=== PATIENT | female | born 1940 | race Caucasian/White ===

== ENCOUNTER 2017-07-31 20:40 | Emergency (ER) | payer BC, MEDICARE ==
[2017-07-31 20:41] VITALS: BMI 25.9
[2017-07-31 21:00] VITALS: BP 147/79; PULSE 83; RESP 16; TEMP 97.4; O2SAT 97
--- NOTE | 2017-07-31 21:56 | C.PDOC ---
"History Of Present Illness 76 years old female presents to ED after she slipped and fell on both her knees and right shoulder on the floor of her building hallway. Patient complaints of bilateral knee pain and right shoulder pain. Denies nausea, vomiting, fever or chills. Time Seen by Provider: 07/31/17 21:01 Chief Complaint (Nursing): Lower Extremity Problem/Injury History Per: Patient History/Exam Limitations: no limitations Onset/Duration Of Symptoms: Hrs Current Symptoms Are (Timing): Still Present Severity: Moderate Pain Scale Rating Of: 4 Recent travel outside of the [place]: No - Knee Description Of Injury: Fell Past Medical History Reviewed: Historical Data, Nursing Documentation, Vital Signs Vital Signs: Last Vital Signs Temp 97.4 F L 07/31/17 20:57 Pulse 83 07/31/17 20:57 Resp 16 07/31/17 20:57 BP 147/79 07/31/17 20:57 Pulse Ox 97 08/01/17 03:13 - Medical History PMH: Arthritis, Diverticulitis, HTN, Hypercholesterolemia - [facility] Procedures HOME MANAGEMENT TREATMENT (10/10/15) HOME MANAGEMENT TREATMENT USING ASSIST EQUIPMENT (06/03/16) INJECT STEROID (11/28/14) INJECTION INTO JOINT (11/28/14) SPINAL CANAL INJECT NEC (11/28/14) THERAPEUTIC EXERCISE TREATMENT OF MUSCULOSK LOW BACK/LE (06/03/16) THERAPEUTIC EXERCISE TREATMENT OF MUSCULOSK WHOLE (10/10/15) Family History: States: No Known Family Hx - Social History Hx Tobacco Use: No Hx Alcohol Use: No Hx Substance Use: No - Immunization History Hx Tetanus Toxoid Vaccination: No Hx Influenza Vaccination: No Hx Pneumococcal Vaccination: No Review Of Systems Constitutional: Negative for: Fever, Chills Musculoskeletal: Positive for: Shoulder Pain (Right ), Other (Bilateral knee pain) Neurological: Negative for: Weakness, Numbness Psych: Negative for: Depression, Suicidal ideation Physical Exam - Physical Exam Appears: Non-toxic, Other (Awake and alert) Skin: Warm, Dry Head: Atraumatic, Normacephalic Eye(s): bilateral: Normal Inspection Neck: No Midline Cervical Tenderness, Paracervical Tenderness Chest: Symmetrical, No Tenderness Cardiovascular: Rhythm Regular Respiratory: No Rales, No Rhonchi, No Wheezing Gastrointestinal/Abdominal: Soft, No Tenderness Extremity: No Normal ROM (decreased ROM in the left knee and right shoulder secindary to pain), Tenderness (b/l knee tenderness, L>R, right shoulder tenderness), Other Neurological/Psych: Oriented x3, Normal Speech, Normal Cognition ED Course And Treatment O2 Sat by Pulse Oximetry: 97 (Room air) Pulse Ox Interpretation: Normal - Other Rad X-Ray of Cervical Spine X-Ray: Viewed By Me, Read By Radiologist Interpretation: EXAM: XR Cervical Spine, 2 or 3 Views. CLINICAL HISTORY: 76 years old, female; Pain; Neck pain; Additional info: Fall injury. TECHNIQUE: Frontal and lateral views of the cervical spine. COMPARISON: No relevant prior studies available. FINDINGS: Vertebrae: Osseous demineralization.The tip of the dens is obscured by the teeth and occiput on the. odontoid view. Normal cervical vertebral body alignment. No jumped or perched facets. No listhesis. Degenerative changes at the atlantodens joint. No evident fracture. The vertebral body heights are. preserved. Degenerative endplate changes at C5- 6. Disc spaces: Diffuse intervertebral disc space loss, most significant at C5- 6. Diffuse facet and. uncovertebral joint hypertrophy. Soft tissues: No prevertebral soft tissue swelling. Lung apices: Normal appearance of the lung apices. Other findings: Multiple partially imaged dental implants. IMPRESSION : 1. No acute osseous abnormality of the cervical spine. 2. Diffuse cervical spondylosis as detailed above. Thank you for allowing us to participate in the care of your patient. FLORIDALMA TINOCO | Preliminary Radiology Report. DESOLDERER (QA) DISCREPANCY? If there is a discrepancy between the preliminary and final interpretation, please notify [facility] via [email or web address]. If you do not have access to our QA portal, call our QA team at [phone]. CONFIDENTIALITY STATEMENT. This report is intended only for the use of the referring physician, and only in accordance with law, If you received this in error, call [phone]. Page 2 of 2. Dictated and Authenticated by: Candelario Orozco DO. 07/31/2017 10:16 PM Eastern Time ([place] & [place]) X-Ray of Right Shoulder X-Ray: Viewed By Me, Read By Radiologist Interpretation: EXAM: XR Right Shoulder Complete, 2 or More Views. CLINICAL HISTORY: 76 years old, female; Injury or trauma; Fall; Initial encounter; Abrasion; Shoulder; Right; Additional. info: Fall injury. TECHNIQUE: Two or more views of the right shoulder. COMPARISON: No relevant prior studies available. FINDINGS: Bones/joints: Diffuse osseous demineralization. Joint space narrowing and osteophyte formation of. the right glenohumeral and acromioclavicular joints. No evident fracture. No dislocation. Spondylosis of the imaged cervical spine. Soft tissues: The soft tissues are unremarkable. Lungs: Normal appearance of the imaged right lung. IMPRESSION: 1. No acute osseous abnormality of the right shoulder. 2. Right glenohumeral acromioclavicular joint osteoarthrosis. Thank you for allowing us to participate in the care of your patient. Dictated and Authenticated by: Candelario Orozco DO. 07/31/2017 10:17 PM Eastern Time ([place] & [place]) X-Ray of Right Knee X-Ray: Viewed By Me, Read By Radiologist Interpretation: EXAM: XR Left Knee, 3 views. CLINICAL HISTORY: 76 years old, female; Injury or trauma; Fall; Initial encounter; Abrasion; Knee; Bilateral; Additional. info: Fall injury. TECHNIQUE: Three views of the left knee. COMPARISON: No relevant prior studies available. FINDINGS: Bones/joints: Osseous demineralization. Status post total knee arthroplasty and patellar. resurfacing. No evident hardware complication. Mild patellar enthesopathy at the quadriceps. insertion. No acute fracture. No dislocation. No joint effusion. Soft tissues: The soft tissues are unremarkable. IMPRESSION: No acute osseous abnormality of the left knee. . EXAM: XR Right Knee, 3 views. CLINICAL HISTORY: 76 years old, female; Injury or trauma; Fall; Initial encounter; Abrasion; Knee; Bilateral; Additional. info: Fall injury. FLORIDALMA TINOCO | Preliminary Radiology Report. DESOLDERER (QA) DISCREPANCY? If there is a discrepancy between the preliminary and final interpretation, please notify [facility] via [email or web address]. If you do not have access to our QA portal, call our QA team at [phone]. CONFIDENTIALITY STATEMENT. This report is intended only for the use of the referring physician, and only in accordance with law, If you received this in error, call [phone]. Page 2 of 2. TECHNIQUE: Three views of the right knee. COMPARISON: No relevant prior studies available. FINDINGS: Bones/joints: Osseous demineralization. Status post total knee arthroplasty and patellar. resurfacing. No evident hardware complication. Mild patellar enthesopathy at the quadriceps. insertion. No acute fracture. No dislocation. No joint effusion. Soft tissues: The soft tissues are unremarkable. IMPRESSION: No acute osseous abnormality of the right knee. Thank you for allowing us to participate in the care of your patient. Dictated and Authenticated by: Candelario Orozco DO. 07/31/2017 10: 19 PM Eastern Time ([place] & [place]) - CT Scan/US CT of Right Shoulder Other Rad Studies (CT/US): Read By Radiologist, Radiology Report Reviewed CT/US Interpretation: EXAM: CT Right Upper Extremity Without Intravenous Contrast, Shoulder. CLINICAL HISTORY: 76 years old, female; Injury or trauma; Fall; Initial encounter; Abrasion; Shoulder; Right; Additional. info: Please do scapula and shoulder and proximal arm. TECHNIQUE: Axial computed tomography images of the right shoulder without intravenous contrast. All CT scans. at this facility use one or more dose reduction techniques, viz.: automated exposure control; ma/kV. adjustment per patient size (including targeted exams where dose is matched to indication; i.e. head);. or iterative reconstruction technique. Coronal and sagittal reformatted images were created and reviewed. COMPARISON: No relevant prior studies available. FINDINGS: Bones/joints: Mildly displaced fracture glenoid. Mild degenerative changes of acromioclavicular. joint. No dislocation. Small cyst within humeral head. Soft tissues: Minimal soft tissue swelling about glenoid. Lungs: Few pulmonary nodules, up to 0.3 cm. IMPRESSION: 1. Glenoid fracture. 2. Pulmonary nodules. For low-risk patients, no follow-up is necessary. For high-risk patients. (smoking history or other known risk factors) an optional CT at 12 months could be performed. 3. Incidental/non-acute findings are described above. [facility]. [facility]. Final Radiology Report . Name: FLORIDALMA TINOCO Age: 76Years F Date: 07/31/2017. SSN: [id number] : 1940. Study: CT EXTREMITY UPPER WO Requesting Physician: Yoselyn Cooper PA-C. Images: 493. Addl Studies: Provided Clinical History: please do scapula and shoulder and proximal arm. CONFIDENTIALITY STATEMENT. This transmission is confidential and is intended to be a privileged communication. It is intended only for the use of the addressee. Access to this. message by anyone else is unauthorized. If you are not the intended recipient, any disclosure, copying, distribution or any action taken, or omitted to. be taken in reliance on it is prohibited and may be unlawful. If you received this communication in error, please notify us by telephone, so that return. of this document to us can be arranged. Page 2 of 2. Thank you for allowing us to participate in the care of your patient. Dictated and Authenticated by: Ozzie Maloney MD. 07/31/2017 10:50 PM Eastern Time ([place] & [place]) CT of Left Knee Other Rad Studies (CT/US): Read By Radiologist, Radiology Report Reviewed CT/US Interpretation: EXAM: CT Left Lower Extremity Without Intravenous Contrast, Knee. CLINICAL HISTORY: 76 years old, female; Injury or trauma; Fall ; Initial encounter; Abrasion; Knee; Left; Additional info: Fall, knee pain after fall. TECHNIQUE: Axial computed tomography images of the left knee without intravenous contrast. All CT scans at. this facility use one or more dose reduction techniques, viz.: automated exposure control; ma/kV. adjustment per patient size (including targeted exams where dose is matched to indication; i.e. head);. or iterative reconstruction technique. Coronal and sagittal reformatted images were created and reviewed. COMPARISON: CR - KNEE 3 VIEWS BI 2017-07-31 21:15. FINDINGS: Limitations: Streak artifact - mild. Bones/ joints: No acute fracture. Total knee arthroplasty. No hardware complications. No. dislocation. No significant joint effusion. Soft tissues: Minimal heterotopic ossification. IMPRESSION: 1. No fracture. 2. Incidental/non- acute findings are described above. [facility]. [facility]. Final Radiology Report [id number]. Name: FLORIDALMA TINOCO Age: 76Years F Date : 07/31/2017. SSN: [id number] : 1940. Study: CT EXTREMITY LOWER WO Requesting Physician: Yoselyn Cooper PA-C. Images: 442. Addl Studies: Provided Clinical History: fall, knee pain after fall. CONFIDENTIALITY STATEMENT. This transmission is confidential and is intended to be a privileged communication. It is intended only for the use of the addressee. Access to this. message by anyone else is unauthorized. If you are not the intended recipient, any disclosure, copying, distribution or any action taken, or omitted to. be taken in reliance on it is prohibited and may be unlawful. If you received this communication in error, please notify us by telephone, so that return. of this document to us can be arranged. Page 2 of 2. Thank you for allowing us to participate in the care of your patient. Dictated and Authenticated by: Ozzie Maloney MD. 2017 10:53 PM Eastern Time ([place] & [place]) Medical Decision Making Medical Decision Making: Ordered X-Ray of spine, right shoulder and knee. Exams negative. Patient was still in discomfort. After re-examination, patient was found tender in right shoulder and left knee. Therefore, CT of right shoulder and left knee was ordered. CT results showed fracture in glenoid. Patient's PMD Dr. Garcia was at the bed side and evaluated patient at the bedside. Patient's son Saji was contacted and wants her to follow up with Orthopedist at [facility]. Patient was placed on shoulder immobilizer and left knee braces, then discharged home. Disposition - Disposition Disposition: HOME/ ROUTINE Disposition Time: 23:25 Condition: STABLE Additional Instructions: Follow up with PMD and Orthopedist within 1-2 days. Return to ED if feel worse. Prescriptions: oxyCODONE/Acetaminophen [Percocet 5/325 mg Tab] 1 tab PO QID PRN #20 tab PRN Reason: Pain Instructions: Fall Prevention (ED) Forms: [facility] (Belarusian) - Clinical Impression Clinical Impression: Glenoid fracture of shoulder, Knee contusion, Fall - PA / BUDGET DIRECTOR / Resident Statement MD/DO has reviewed & agrees with the documentation as recorded. - Scribe Statement The provider has reviewed the documentation as recorded by the Irwinibjess Armstrong All medical record entries made by the Irwinibjess were at my direction and personally dictated by me. I have reviewed the chart and agree that the record accurately reflects my personal performance of the history, physical exam, medical decision making, and the department course for this patient. I have also personally directed, reviewed, and agree with the discharge instructions and disposition."
--- NOTE | 2017-07-31 22:50 | CT ---
EXAM: CT Right Upper Extremity Without Intravenous Contrast, Shoulder CLINICAL HISTORY: 76 years old, female; Injury or trauma; Fall; Initial encounter; Abrasion; Shoulder; Right; Additional info: Please do scapula and shoulder and proximal arm TECHNIQUE: Axial computed tomography images of the right shoulder without intravenous contrast. All CT scans at this facility use one or more dose reduction techniques, viz.: automated exposure control; ma/kV adjustment per patient size (including targeted exams where dose is matched to indication; i.e. head); or iterative reconstruction technique. Coronal and sagittal reformatted images were created and reviewed. COMPARISON: No relevant prior studies available. FINDINGS: Bones/joints: Mildly displaced fracture glenoid. Mild degenerative changes of acromioclavicular joint. No dislocation. Small cyst within humeral head. Soft tissues: Minimal soft tissue swelling about glenoid. Lungs: Few pulmonary nodules, up to 0.3 cm. IMPRESSION: 1. Glenoid fracture. 2. Pulmonary nodules. For low-risk patients, no follow-up is necessary. For high-risk patients (smoking history or other known risk factors) an optional CT at 12 months could be performed. 3. Incidental/non-acute findings are described above.
--- NOTE | 2017-07-31 22:53 | CT ---
EXAM: CT Left Lower Extremity Without Intravenous Contrast, Knee CLINICAL HISTORY: 76 years old, female; Injury or trauma; Fall; Initial encounter; Abrasion; Knee; Left; Additional info: Fall, knee pain after fall TECHNIQUE: Axial computed tomography images of the left knee without intravenous contrast. All CT scans at this facility use one or more dose reduction techniques, viz.: automated exposure control; ma/kV adjustment per patient size (including targeted exams where dose is matched to indication; i.e. head); or iterative reconstruction technique. Coronal and sagittal reformatted images were created and reviewed. COMPARISON: CR - KNEE 3 VIEWS 2017-07-31 21:15 FINDINGS: Limitations: Streak artifact - mild. Bones/joints: No acute fracture. Total knee arthroplasty. No hardware complications. No dislocation. No significant joint effusion. Soft tissues: Minimal heterotopic ossification. IMPRESSION: 1. No fracture. 2. Incidental/non-acute findings are described above.
--- NOTE | 2017-08-01 15:25 | RAD ---
PROCEDURE: Bilateral Knee Radiographs. HISTORY: fall COMPARISON: Comparison is made with prior study dated 01/30/2016 FINDINGS: BONES: Right Knee: Status post right knee arthroplasty. Left Knee: At this post left knee arthroplasty JOINTS: Right Knee: The hardware are seen at appropriate position Left knee: The hardware are seen at appropriate position SOFT TISSUES: Right Knee: Normal. Left Knee: Normal. JOINT EFFUSION: Right Knee: None. Left Knee: None. OTHER FINDINGS: None. IMPRESSION: Status post bilateral knee arthroplasty. No evidence of acute fracture or dislocation.
--- NOTE | 2017-08-01 15:32 | RAD ---
PROCEDURE: Cervical Spine Radiographs. HISTORY: Pain. COMPARISON: None. FINDINGS: BONES: Alignment maintained. No fracture. Dens Intact. DISC SPACES: Moderate spondylosis and degenerative changes more prominent at C5-C6 associated with narrowing of the disc is space. SOFT TISSUES: Normal. No prevertebral soft tissue swelling. OTHER FINDINGS: None. IMPRESSION: No radiographic evidence of acute fracture or subluxation. Moderate spondylosis more prominent at C5-C6. Preliminary report was submitted by [facility].
--- NOTE | 2017-08-01 15:36 | RAD ---
PROCEDURE: Radiographs of the Right Shoulder HISTORY: fall COMPARISON: No prior. FINDINGS: BONES: Normal. No fracture. JOINTS: Advanced osteoarthritic degenerative changes at the AC joint and arthritic degenerative changes at the right glenohumeral joint. SOFT TISSUES: Normal. OTHER FINDINGS: None. IMPRESSION: No evidence of acute fracture or dislocation. Arthritic degenerative changes.
== END 2017-08-01 00:06 | disposition home or self-care (01) ==
LOC: C.ER 20:40
DX: S42.141A Displaced fracture of glenoid cavity of scapula, right shoulder, initial encounter for closed fracture (principal); S80.02XA Contusion of left knee, initial encounter; W01.0XXA Fall on same level from slipping, tripping and stumbling without subsequent striking against object, initial encounter; Y92.098 Other place in other non-institutional residence as the place of occurrence of the external cause

== ENCOUNTER 2018-05-18 13:32 | Emergency (ER) | payer MEDICARE, BC ==
[2018-05-18 13:32] VITALS: BMI 25.9
[2018-05-18] MEDS ORDERED: Sodium Chloride 0.9% 1,000 ML IV STA (13:51)
[2018-05-18] MEDS ORDERED: MethylPREDNISolone 40 mg Vial IVP STA (13:52)
[2018-05-18 13:56] VITALS: TEMP 98
--- NOTE | 2018-05-18 14:03 | C.PDOC ---
History Of Present Illness 77 y/o female with PMHx of vertigo presents to the ED complaining of severe dizziness and nausea that began around 12:30 today. Patient describes dizziness as room spinning sensation, associated with left ear buzzing and sensation of fullness. She reports having prior episodes of similar symptoms, once back in 05/2013 when she was seen here in the ED. Patient notes the treatment at that time relieved her symptoms. Otherwise she denies any visual loss, changes in speech, chest pain, SOB, focal weakness, numbness, tingling, fever, or headache. Of note patient states that prior vertigo episodes have been brought on after flying, and she did fly home a few days ago. Time Seen by Provider: 05/18/18 13:34 Chief Complaint (Nursing): Dizziness/Lightheaded History Per: Patient History/Exam Limitations: no limitations Onset/Duration Of Symptoms: Hrs Current Symptoms Are (Timing): Still Present Seizure Or Post-ictal Symptoms: None Possible Causative Factor(s): Vertigo Fall Associated With With Symptoms: No, No Injury As Result Of Fall Past Medical History Reviewed: Historical Data, Nursing Documentation, Vital Signs Vital Signs: Last Vital Signs Temp 98.0 F 05/18/18 13:48 Pulse 72 05/18/18 13:48 Resp 14 05/18/18 13:48 BP 144/63 05/18/18 13:48 Pulse Ox 100 05/18/18 13:38 - Medical History PMH: Arthritis, Diverticulitis, HTN, Hypercholesterolemia Denies: Chronic Kidney Disease Other PMH: Vertigo - [facility] Procedures HOME MANAGEMENT TREATMENT (10/10/15) HOME MANAGEMENT TREATMENT USING ASSIST EQUIPMENT (06/03/16) INJECT STEROID (11/28/14) INJECTION INTO JOINT (11/28/14) SPINAL CANAL INJECT NEC (11/28/14) THERAPEUTIC EXERCISE TREATMENT OF MUSCULOSK LOW BACK/LE (06/03/16) THERAPEUTIC EXERCISE TREATMENT OF MUSCULOSK WHOLE (10/10/15) Family History: States: No Known Family Hx - Social History Hx Tobacco Use: No Hx Alcohol Use: No Hx Substance Use: No - Immunization History Hx Tetanus Toxoid Vaccination: No Hx Influenza Vaccination: No Hx Pneumococcal Vaccination: No Review Of Systems Except As Marked, All Systems Reviewed And Found Negative. Constitutional: Negative for: Fever, Chills Eyes: Negative for: Vision Change ENT: Positive for: Other (Left ear buzzing/sensation of fullness) Cardiovascular: Negative for: Chest Pain, Palpitations Respiratory: Negative for: Shortness of Breath Gastrointestinal: Negative for: Nausea, Vomiting Musculoskeletal: Negative for: Neck Pain Neurological: Positive for: Dizziness (room-spinning). Negative for: Weakness, Numbness, Incoordination, Change in Speech, Confusion, Headache Physical Exam - Physical Exam Additional Physical Exam Comments: Constitutional: No acute distress. Head: Normocephalic. Atraumatic. Eyes: PERRL. EOMI. No nystagmus. ENT: Moist mucous membranes. Right TM appears normal. Left TM appears mildly duller; no erythema or visible fluid. Neck: Supple. Cardiovascular: Regular rate. Radial pulse 2+ bilaterally. Chest: No tenderness. Respiratory: Clear to auscultation bilaterally. GI: Soft. Nontender. Nondistended. Back: No CVA tenderness. Musculoskeletal: No tenderness or swelling of extremities. Skin: No rash. Neurologic: Oriented x 3. Cranial nerves II-XII intact. No ataxia. Romberg negative. Finger to nose, heel to pickett, and rapid alternating movements normal. ED Course And Treatment ECG: Interpreted By Me, Viewed By Me ECG Rhythm: Sinus Rhythm ECG Interpretation: No Acute Changes Interpretation Of ECG: No ST elevations, No T wave inversions Rate From EC (bpm) O2 Sat by Pulse Oximetry: 100 (RA) Pulse Ox Interpretation: Normal Medical Decision Making Medical Decision Making: Records reviewed, patient seen here for similar complaints in May 2013. Impression: 77 y/o F with c/o room-spinning dizziness and nausea, known hx of vertigo Plan: --Blood work --Meclizine 50 mg PO --IV fluids --Solu-Medrol 125 mg IVP --Zofran 4 mg IVP --Reassess after treatment Symptoms resolved. Dr. Garcia came to see patient in ED, states he prescribed all medications for patient. Discharged home, f/u Dr. Garcia, return to ED for worsening vertigo, focal deficit, headache, or any other problem. Disposition Discussed With : Sammi Garcia Doctor Will See Patient In The: ED - Disposition Disposition: HOME/ ROUTINE Disposition Time: 15:34 Condition: STABLE Instructions: Vertigo (a Type of Dizziness) Forms: [facility] (Belizean) - Clinical Impression Clinical Impression: Vertigo - Scribe Statement The provider has reviewed the documentation as recorded by the Scribe (Wanda Mensah) Provider Attestation: All medical record entries made by the Scribe were at my direction and personally dictated by me. I have reviewed the chart and agree that the record accurately reflects my personal performance of the history, physical exam, medical decision making, and the department course for this patient. I have also personally directed, reviewed, and agree with the discharge instructions and disposition.
[2018-05-18 16:06] VITALS: BP 149/64; PULSE 68; RESP 18
[2018-05-18 17:12] VITALS: O2SAT 100
--- NOTE | 2018-05-19 19:44 | CARD ---
APPROVED REPORT Date of service: 05/18/2018 EKG Measurement Heart [id number] <Conclusion> Normal sinus rhythm ST elevation, consider early repolarization, pericarditis, or injury Nonspecific ST and T wave abnormality Abnormal ECG
== END 2018-05-18 16:01 | disposition home or self-care (01) ==
LOC: C.ER 13:32
DX: R42 Dizziness and giddiness (principal); I10 Essential (primary) hypertension; E78.00 Pure hypercholesterolemia, unspecified
CPT/HCPCS: 82948; 96361; 96374; 96375; 99285; J2405; J2920; J7030

== ENCOUNTER 2018-05-23 14:32 | Observation (INO) | payer MEDICARE, BC ==
[2018-05-23 14:33] VITALS: BMI 25.9
--- NOTE | 2018-05-23 14:57 | C.PDOC ---
History Of Present Illness 77 y/o female presents to ED after a recurrent vertigo today. Patient was seen here in ER on 05/18/18 for similar complaint where her symptoms were resolved but recurred again earlier today. Patient is unable to take valium, meclizine, or Zofran due to vomiting. States symptoms are worsened with movement and the room keeps spinning. She denies new focal weakness, urinary symptoms, headache, chest pain, or other new symptoms since prior ER evaluation. Patient had outpatient MRI on 08/21 that was shown normal. States she recently traveled and took multiple airplane trips. RECUR VERTIGO TODAY. SEEN 05/18 FOR SAME. PS SX RESOLVED BUT THEN RECUR TODAY. UNABLE TO TAKE VALIUM, MECLIZINE, ZOFRAN DUE TO VOMITING. CURRENT SX SIM TO PRIOR, DENIES NEW FOCAL WEAKNESS. ROOM SPINNING, WORSE W MOVEMENT. +RECENT MULT AIRPLANE TRIPS DENIES URI SX. NO SANDERS, CP, OTHER NEW SX SINCE PRIOR ER EVAL. PS HAD OUTPT MRI ON 08/21, "IT WAS NORMAL" EXAM MOD DIST NONTOXIC HEENT EOMI; PERRLA; NO NYSTAGMUS NEURO FINGER NOSE, HEEL-PICKETT TEST WNL; +INDUCIBLE VERTIGO W POSITION CHANGE. NO FOCAL MOTOR DEF. CV RRR REMAINDER NEG MDM PER RN PT REFUSING FULL ER PROTOCOL FOR DIZZINESS @ THIS TIME "I HAD ALL THIS DONE ALREADY" Time Seen by Provider: 05/23/18 14:37 Chief Complaint (Nursing): Dizziness/Lightheaded History Per: Patient History/Exam Limitations: no limitations Onset/Duration Of Symptoms: Days Current Symptoms Are (Timing): Still Present Past Medical History Reviewed: Historical Data, Nursing Documentation, Vital Signs Vital Signs: Last Vital Signs Temp 97.9 F 05/23/18 14:34 Pulse 74 05/23/18 14:34 Resp 17 05/23/18 14:34 BP 143/78 05/23/18 14:34 Pulse Ox 99 05/23/18 14:34 - Medical History PMH: Arthritis, Diverticulitis, HTN, Hypercholesterolemia Denies: Chronic Kidney Disease - [facility] Procedures HOME MANAGEMENT TREATMENT (10/10/15) HOME MANAGEMENT TREATMENT USING ASSIST EQUIPMENT (06/03/16) INJECT STEROID (11/28/14) INJECTION INTO JOINT (11/28/14) SPINAL CANAL INJECT NEC (11/28/14) THERAPEUTIC EXERCISE TREATMENT OF MUSCULOSK LOW BACK/LE (06/03/16) THERAPEUTIC EXERCISE TREATMENT OF MUSCULOSK WHOLE (10/10/15) Family History: States: No Known Family Hx - Social History Hx Tobacco Use: No Hx Alcohol Use: No Hx Substance Use: No - Immunization History Hx Tetanus Toxoid Vaccination: No Hx Influenza Vaccination: No Hx Pneumococcal Vaccination: No Review Of Systems Except As Marked, All Systems Reviewed And Found Negative. Constitutional: Negative for: Fever Cardiovascular: Negative for: Chest Pain Respiratory: Negative for: Shortness of Breath Gastrointestinal: Negative for: Nausea, Vomiting, Diarrhea Genitourinary: Negative for: Dysuria Neurological: Positive for: Other (Vertigo). Negative for: Weakness, Headache Physical Exam - Physical Exam Appears: Non-toxic, In Acute Distress (Moderate) Skin: Warm, Dry Head: Atraumatic, Normacephalic Eye(s): bilateral: Normal Inspection, PERRL, EOMI, Other (No nystagmus) Oral Mucosa: Moist Cardiovascular: Rhythm Regular, No Murmur Respiratory: Normal Breath Sounds, No Rales, No Rhonchi, No Wheezing Neurological/Psych: Oriented x3, Normal Speech, Other (Finger-nose and heel-pickett test WNL; positive inducible vertigo with position change; no focal motor deficiency) Gait: Steady ED Course And Treatment - Laboratory Results Result Diagrams: 05/23/18 15:24 O2 Sat by Pulse Oximetry: 99 (RA) Pulse Ox Interpretation: Normal Progress - Re-Evaluation Re-evaluation Note: 05/23/18 14:53 D/W DR SALDIVAR AWARE OF ER FINDINGS AND AGREES W PLAN. STATES WILL D/W PT 05/23/18 15:16 PT NOW CONSENTS TO IV 05/23/18 15:25 D/W DR SALDIVAR, REQUESTS ADMISSION TO DR COFFEY DUE TO BLUE LIST. D/W DR COFFEY AWARE OF ER FINDINGS - Data Reviewed Data Reviewed: Lab, Diagnostic imaging, EKG, Old records Medical Decision Making Medical Decision Making: Plan: --CT Head --EKG --Labs --Chest X-Ray --Ativan --IV Fluids --Zofran Disposition Counseled Patient/Family Regarding: Studies Performed, Diagnosis - Disposition Disposition: HOSPITALIZED Disposition Time: 15:25 Condition: SERIOUS Forms: [facility] (Arabic) - POA Present On Arrival: None - Clinical Impression Clinical Impression: Episodic recurrent vertigo, Vomiting - Scribe Statement The provider has reviewed the documentation as recorded by the Pancho Cummins Provider Attestation: All medical record entries made by the Irwinibjess were at my direction and p ersonally dictated by me. I have reviewed the chart and agree that the record accurately reflects my personal performance of the history, physical exam, medical decision making, and the department course for this patient. I have also personally directed, reviewed, and agree with the discharge instructions and disposition.
[2018-05-23] MEDS ORDERED: Sodium Chloride 0.9% 1,000 ML ONE (15:09)
[2018-05-23 15:30] LABS: BASO # 0.1 K/uL (0.0-0.2); BASO % 0.7 % (0.0-2.0); EOS # 0.6 K/uL (0.0-0.7); EOS % 4.2 % (0.0-4.0); HEMOGLOBIN 15.4 g/dL (11.0-16.0); LYMPH # 3.6 K/uL (1.0-4.3); LYMPH % 25.7 % (20.0-40.0); MEAN CELL VOLUME 85.5 fL (81.0-99.0); MEAN CORPUSCULAR HEMOGLOBIN 29.1 pg (27.0-31.0); MEAN PLATELET VOLUME 9.5 fL (7.2-11.7); MONO # 0.8 K/uL (0.0-0.8); MONO % 5.8 % (0.0-10.0); NEUT # 8.9 K/uL (1.8-7.0); NEUT % 63.6 % (50.0-75.0); NRBC % 0.1 % (0.0-2.0); RBC 5.3 Mil/uL (3.80-5.20); RED CELL DISTRIBUTION WIDTH 12.4 % (11.5-14.5)
[2018-05-23] MEDS ORDERED: Sodium Chloride 0.9% 1,000 ML IV SCH (15:30)
[2018-05-23] MEDS ORDERED: Iodixanol 320 MG/ML 100 ML BOTTLE IV ONE (15:59)
--- NOTE | 2018-05-23 17:21 | RAD ---
Date of service: 05/23/2018 PROCEDURE: CHEST RADIOGRAPH, 1 VIEW HISTORY: MED CLEAR COMPARISON: None available. FINDINGS: LUNGS: Diminished history volume. No acute pulmonary disease appreciable bilaterally. PLEURA: No pneumothorax or pleural fluid seen. CARDIOVASCULAR: Cardiac silhouette appears technically magnified compared prior PA lateral projection. Borderline pulmonary vascular congestion. OSSEOUS STRUCTURES: No significant abnormalities. VISUALIZED UPPER ABDOMEN: Normal. OTHER FINDINGS: None. IMPRESSION: Borderline pulmonary vascular congestion. No acute infiltrate, pleural effusion or pneumothorax in the interval compared to chest radiograph 07/06/2014.
[2018-05-23 17:51] LABS: ALB/GLOB RATIO 1.2 (1.0-2.1); ALBUMIN 3.4 g/dL (3.5-5.0); ALT/SGPT 50 U/L (9-52); AST/SGOT 27 U/L (14-36); BLOOD UREA NITROGEN 14 mg/dL (7-17); CALCIUM 8.4 mg/dl (8.6-10.4); GFR NON-AFRICAN AMERICAN > 60
[2018-05-23 18:17] LABS: CK-MB < 0.22 ng/mL (0.0-3.38)
--- NOTE | 2018-05-23 18:24 | CP.PCM.HP ---
<Mishel GarayDustin - Last Filed: 05/23/18 20:06> History of Present Illness - History of Present Illness History of Present Illness: Patient is a 77 year old female with a past medical history of Menieres disease who presents to the ED with complaints of severe vertigo, nausea and vomiting. The patient's symptoms started on Thursday; she went to [facility] ED and received IV fluids and IV solumedrol. Her symptoms started to improved shortly after on Thursday, however for the past 1 day, they have worsened. Patient states she has been "taking zofran and meclizine around the clock without relief". Patient's last episode was 4 years ago and resolved the same day with IV fluids and steroids. She currently complains of nausea, vomiting, ringing in the ear, and persistent vertigo. Per patient's son, the patient has been traveling and has eaten [place] food, which he says is a trigger. Patient denies chest pain, abdominal pain, fevers, dyspnea, dysuria, leg pain, leg swelling, an d weakness. PMD: Dr. Garcia PMHx: Menieres disease, HTN (controlled, not on medication), arthritis SurgHx: Bilateral knee replacements FamHx: Mother- CVA SocHx: denies smoking, tobacco, and drug use Allergies: NKDA Medication: Zofran Present on Admission - Present on Admission Any Indicators Present on Admission: No Review of Systems - Constitutional Constitutional: Lethargy. absent: Headache, Weakness - EENT Ears: Tinnitus, Dizziness. absent: Decreased Hearing - Cardiovascular Cardiovascular: absent: Chest Pain, Dyspnea, Edema, Palpitations - Respiratory Respiratory: absent: Cough, Dyspnea - Gastrointestinal Gastrointestinal: Nausea, Vomiting. absent: Abdominal Pain - Genitourinary Genitourinary: absent: Change in Urinary Stream, Dysuria - Musculoskeletal Musculoskeletal: absent: Numbness, Tingling - Neurological Neurological: Dizziness, Vertigo. absent: Numbness, Weakness Past Patient History - Past Medical History & Family History Past Medical History?: Yes - Past Social History Smoking Status: Never Smoked - CARDIAC Hx Hypercholesterolemia: Yes Hx Hypertension: Yes - PULMONARY Hx Respiratory Disorders: No - NEUROLOGICAL Hx Neurological Disorder: No - HEENT Hx HEENT Problems: No Hx Cataracts: Yes - RENAL Hx Chronic Kidney Disease: No - ENDOCRINE/METABOLIC Hx Endocrine Disorders: No - HEMATOLOGICAL/ONCOLOGICAL Hx Blood Disorders: No - INTEGUMENTARY Hx Dermatological Problems: No - MUSCULOSKELETAL/RHEUMATOLOGICAL Hx Arthritis: Yes - GASTROINTESTINAL Hx Diverticulitis: Yes - GENITOURINARY/GYNECOLOGICAL Hx Genitourinary Disorders: No - PSYCHIATRIC Hx Substance Use: No - SURGICAL HISTORY Hx Surgeries: Yes Hx Hysterectomy: Yes Hx Joint Replacement: Yes (left and right TKR) Other/Comment: Anterior-posterior rectocoele repair 2014left hemicolectomy, LESI x2. cataract surgery. ruptured diverticulum. left total knee replacement september 2015 - ANESTHESIA Hx Anesthesia: Yes Hx Anesthesia Reactions: No Hx Malignant Hyperthermia: No Meds Home Medications: Home Medication List Medication Instructions Recorded Confirmed Type Clopidogrel [Plavix] 75 mg PO DAILY #30 tab 05/24/18 Rx Meclizine [Meclizine*] 25 mg PO Q6 PRN tab 05/24/18 Rx Trimethobenzamide [Tigan] 200 mg IM Q6 PRN #5 vial 05/24/18 Rx Allergies/Adverse Reactions: Allergies Allergy/AdvReac Type Severity Reaction Status Date / Time No Known Allergies Allergy Verified 05/23/18 14:37 Physical Exam - Head Exam Head Exam: NORMAL INSPECTION - Eye Exam Eye Exam: EOMI, Normal appearance - ENT Exam ENT Exam: Mucous Membranes Moist, Normal Exam, Normal External Ear Exam, TM's Normal Bilaterally - Respiratory Exam Respiratory Exam: Clear to Auscultation Bilateral, NORMAL BREATHING PATTERN. a bsent: Rales, Rhonchi, Wheezes, Respiratory Distress - Cardiovascular Exam Cardiovascular Exam: REGULAR RHYTHM, +S1, +S2. absent: Bradycardia, Tachycardia - GI/Abdominal Exam GI & Abdominal Exam: Normal Bowel Sounds, Soft. absent: Distended, Firm, Guarding - Extremities Exam Extremities exam: Positive for: normal inspection, pedal pulses present. Negative for: calf tenderness, pedal edema, tenderness - Neurological Exam Neurological exam: Alert, CN II-XII Intact, Oriented x3 - Psychiatric Exam Psychiatric exam: Normal Affect - Skin Skin Exam: Dry, Intact, Normal Color, Warm Results - Vital Signs Recent Vital Signs: Last Vital Signs Temp 97.5 F L 05/23/18 16:45 Pulse 84 05/23/18 16:45 Resp 18 05/23/18 16:45 BP 115/51 L 05/23/18 16:45 Pulse Ox 98 05/23/18 16:45 - Labs Result Diagrams: 05/23/18 15:24 05/23/18 17:27 Labs: Laboratory Results - last 24 hr 05/23/18 05/23/18 15:24 17:27 WBC 14.0 H RBC 5.30 H Hgb 15.4 D Hct 45.4 MCV 85.5 MCH 29.1 MCHC 34.0 RDW 12.4 Plt Count 236 MPV 9.5 Neut % (Auto) 63.6 Lymph % (Auto) 25.7 [place] % (Auto) 5.8 Eos % (Auto) 4.2 H Baso % (Auto) 0.7 Neut # (Auto) 8.9 H Lymph # (Auto) 3.6 [place] # (Auto) 0.8 Eos # (Auto) 0.6 Baso # (Auto) 0.1 Sodium 135 Potassium 3.1 L Chloride 93 L Carbon Dioxide 31 H Anion Gap 14 BUN 14 Creatinine 0.6 L Est GFR ( Amer) > 60 Est GFR (Non-Af Amer) > 60 Random Glucose 123 H Calcium 8.4 L Total Bilirubin 0.5 AST 27 ALT 50 Alkaline Phosphatase 66 Total Creatine Kinase < 20 L Troponin I < 0.0120 Total Protein 6.1 L Albumin 3.4 L Globulin 2.7 Albumin/Globulin Ratio 1.2 Assessment & Plan - Assessment and Plan (Free Text) Plan: Intractable Vertigo and Vomiting - Hx of Menieres Disease - Neurology consulted: Dr. Tolbert - ENT consulted: Dr. Young - CTA Head & Neck: f/u Medication: - Meclizine 25mg PO Q6 prn for dizziness - Zofran 4mg PO Q6h prn for n/v - Tigan 200mg IM Q6 prn for n/v - Per Dr. Young's recommendations: Prednisone taper [currently giving equivalent dose of IV solumedrol due to vomiting] * Prednisone 60mg x10 days * Prednisone 40mg x 2 days * Prednisone 20mg x 2 days. Hypokalemia - Likely secondary to vomiting - Repleted; will continue to monitor. Prolonged QT - Admitted to telemetry - Likely secondary to Zofran use - Troponin negative - EKG: nsr@74bpm, prolonged QT, T wave abnormality - Continue to monitor Prophylaxis - DVT: SCDs - GI: Protonix 40mg IV daily - PT All management and orders per Dr. Lantigua <GrzegorzGaby - Last Filed: 05/24/18 19:07> Results - Vital Signs Recent Vital Signs: Last Vital Signs Temp 98.5 F 05/24/18 07:00 Pulse 68 05/24/18 07:00 Resp 20 05/24/18 07:00 BP 107/67 05/24/18 07:00 Pulse Ox 96 05/24/18 07:00 - Labs Result Diagrams: 05/23/18 15:24 05/23/18 17:27 Labs: Laboratory Results - last 24 hr 05/23/18 05/23/18 05/24/18 14:45 17:27 00:19 POC Glucose (mg/dL) 111 H 102 Phosphorus 4.4 Magnesium 2.0 05/24/18 06:06 POC Glucose (mg/dL) 101 Phosphorus Magnesium Attending/Attestation - Attestation I have personally seen and examined this patient.: Yes I have fully participated in the care of the patient.: Yes I have reviewed all pertinent clinical information: Yes Notes (Text): Seen and examined at ER with the resident. History taken from her and her son at bedside. Intractable Vertigo and Vomiting admitted for hydration and observation to r/o possible CVA s/p out pt negative MRI yesterday - Hx of Menieres Disease Neurology consulted,DR Tolbert spoke to Dr Ivan ENT we will observe tonight, assessment and the plan discussed with the resident spoke to her primary care DR Garcia
[2018-05-23] MEDS: Trimethobenzamide 200 mg/2 mL Inj IM PRN (22:41)
[2018-05-24 04:19] VITALS: O2SAT 96
[2018-05-24] MEDS: Trimethobenzamide 200 mg/2 mL Inj IM PRN (07:21)
[2018-05-24 07:30] VITALS: BP 107/67; PULSE 68; RESP 20; TEMP 98.5
--- NOTE | 2018-05-24 08:16 | CP.PCM.DIS ---
<Mishel Garay - Last Filed: 05/24/18 08:57> Provider - Provider Date of Admission: 05/23/18 15:27 Attending physician: Danielle Rachel DO Primary care physician: Dr. Garcia Consults: ENT: Dr. Young Neurology: Dr. Tolbert Time Spent in preparation of Discharge (in minutes): 45 Hospital Course - Lab Results Lab Results: Most Recent Lab Values WBC 14.0 K/uL (4.8-10.8) H 05/23/18 15:24 RBC 5.30 Mil/uL (3.80-5.20) H 05/23/18 15:24 Hgb 15.4 g/dL (11.0-16.0) D 05/23/18 15:24 Hct 45.4 % (34.0-47.0) 05/23/18 15:24 MCV 85.5 fL (81.0-99.0) 05/23/18 15:24 MCH 29.1 pg (27.0-31.0) 05/23/18 15:24 MCHC 34.0 g/dL (33.0-37.0) 05/23/18 15:24 RDW 12.4 % (11.5-14.5) 05/23/18 15:24 Plt Count 236 K/uL (130-400) 05/23/18 15:24 MPV 9.5 fL (7.2-11.7) 05/23/18 15:24 Neut % (Auto) 63.6 % (50.0-75.0) 05/23/18 15:24 Lymph % (Auto) 25.7 % (20.0-40.0) 05/23/18 15:24 [place] % (Auto) 5.8 % (0.0-10.0) 05/23/18 15:24 Eos % (Auto) 4.2 % (0.0-4.0) H 05/23/18 15:24 Baso % (Auto) 0.7 % (0.0-2.0) 05/23/18 15:24 Neut # (Auto) 8.9 K/uL (1.8-7.0) H 05/23/18 15:24 Lymph # (Auto) 3.6 K/uL (1.0-4.3) 05/23/18 15:24 [place] # (Auto) 0.8 K/uL (0.0-0.8) 05/23/18 15:24 Eos # (Auto) 0.6 K/uL (0.0-0.7) 05/23/18 15:24 Baso # (Auto) 0.1 K/uL (0.0-0.2) 05/23/18 15:24 Sodium 135 mmol/L (132-148) 05/23/18 17:27 Potassium 3.1 mmol/L (3.6-5.2) L 05/23/18 17:27 Chloride 93 mmol/L (98-107) L 05/23/18 17:27 Carbon Dioxide 31 mmol/L (22-30) H 05/23/18 17:27 Anion Gap 14 (10-20) 05/23/18 17:27 BUN 14 mg/dL (7-17) 05/23/18 17:27 Creatinine 0.6 mg/dL (0.7-1.2) L 05/23/18 17:27 Est GFR ( Amer) > 60 05/23/18 17:27 Est GFR (Non-Af Amer) > 60 05/23/18 17:27 Random Glucose 123 mg/dL (65-105) H 05/23/18 17:27 Calcium 8.4 mg/dl (8.6-10.4) L 05/23/18 17:27 Phosphorus 4.4 mg/dL (2.5-4.5) 05/23/18 17:27 Magnesium 2.0 mg/dL (1.6-2.3) 05/23/18 17:27 Total Bilirubin 0.5 mg/dL (0.2-1.3) 05/23/18 17:27 AST 27 U/L (14-36) 05/23/18 17:27 ALT 50 U/L (9-52) 05/23/18 17:27 Alkaline Phosphatase 66 U/L (38-126) 05/23/18 17:27 Total Creatine Kinase < 20 U/L (30-135) L 05/23/18 17:27 CK-MB (Mass) < 0.22 ng/mL (0.0-3.38) 10/28/18 17:27 Troponin I < 0.0120 ng/mL (0.00-0.120) 05/23/18 17:27 Total Protein 6.1 g/dL (6.3-8.3) L 05/23/18 17:27 Albumin 3.4 g/dL (3.5-5.0) L 05/23/18 17:27 Globulin 2.7 gm/dL (2.2-3.9) 05/23/18 17:27 Albumin/Globulin Ratio 1.2 (1.0-2.1) 05/23/18 17:27 - Hospital Course Hospital Course: Patient is a 77 year old female with a past medical history of Menieres disease who presents to the ED with complaints of severe vertigo, nausea and vomiting. The patient's symptoms started on Thursday; she went to [facility] ED and received IV fluids and IV solumedrol. Her symptoms started to improved shortly after on Thursday, however for the past 1 day, they have worsened. Patient states she has been "taking zofran and meclizine around the clock without relief". Patient's last episode was 4 years ago and resolved the same day with IV fluids and steroids. She currently complains of nausea, vomiting, ringing in the ear, and persistent vertigo. Per patient's son, the patient has been traveling and has eaten Beninese food, which he says is a trigger. Patient denies chest pain, abdominal pain, fevers, dyspnea, dysuria, leg pain, leg swelling, and weakness. PMD: Dr. Garcia PMHx: Menieres disease, HTN (controlled, not on medication), arthritis SurgHx: Bilateral knee replacements FamHx: Mother- CVA SocHx: denies smoking, tobacco, and drug use Allergies: NKDA Medication: Zofran Hospital course: Patient was admitted on 05/23/18 for intractable vertigo and vomiting. Patient was placed on telemetry for continued monitoring. Patient was started on IV fluids, Zofran PO prn, Meclizine PO prn, and Tigan IM prn. Patient's last episode of vomiting was approximately 2pm in the ED. The patient refused imaging here in the hospital as she just had a brain MRI on Thursday that was unremarkable. Dr. Tolbert, neurologist, was consulted, and suggested to start patient on Plavix 75mg PO daily. Dr. Young, ENT, was consulted, who suggested starting steroids. Patient was seen and examined today. She reports feeling better, denies nausea, vomiting, and states she is not currently dizzy. Patient was ambulating without difficulty. Patient is stable for discharge per Dr. Lantigua, Dr. Garcia, and Dr. Tolbert. Patient has an appointment with vestibular specialist in [place], [place] today. Patient was discharged with a prescription for Plavix 75mg PO daily and Tigan 200mg IM Q6 prn for nausea and vomiting. Patient should continue home medication, Prednisone 20mg PO daily, for one week. Patient should follow up with PMD and Neurologist within 1 week of roberto canales. This is a brief summary of the hospital course. Please see EMR for more details. Discharge Exam - Additional Findings Additional findings: - Head Exam Head Exam: NORMAL INSPECTION - Eye Exam Eye Exam: EOMI, Normal appearance - ENT Exam ENT Exam: Mucous Membranes Moist, Normal Exam, Normal External Ear Exam, TM's Normal Bilaterally - Respiratory Exam Respiratory Exam: Clear to Auscultation Bilateral, NORMAL BREATHING PATTERN. absent: Rales, Rhonchi, Wheezes, Respiratory Distress - Cardiovascular Exam Cardiovascular Exam: REGULAR RHYTHM, +S1, +S2. absent: Bradycardia, Tachycardia - GI/Abdominal Exam GI & Abdominal Exam: Normal Bowel Sounds, Soft. absent: Distended, Firm, Guarding - Extremities Exam Extremities exam: Positive for: normal inspection, pedal pulses present. Negative for: calf tenderness, pedal edema, tenderness - Neurological Exam Neurological exam: Alert, CN II-XII Intact, Oriented x3 - Psychiatric Exam Psychiatric exam: Normal Affect - Skin Skin Exam: Dry, Intact, Normal Color, Warm Discharge Plan - Discharge Medications Prescriptions: Clopidogrel [Plavix] 75 mg PO DAILY #30 tab Trimethobenzamide [Tigan] 200 mg IM Q6 PRN #5 vial PRN Reason: Nausea/Vomiting - Follow Up Plan Condition: FAIR Disposition: HOME/ ROUTINE Instructions: Meniere Disease Additional Instructions: Patient is stable for discharge to home per Dr. Lantigua, Dr. Garcia, and Dr. Tolbert. Patient is to continue 1. Prednisone 20mg PO daily (patient has medication at home) for 1 week. 2. Plavix 75mg PO daily 3. Tigan 200mg IM Q6 prn for nausea/vomiting Patient is scheduled to see vestibular specialist in [place], [place] today. Patient must follow up with PMD and neurologist (Dr. Tolbert) within 1 week of discharge. If symptoms worsen or reoccur, patient should return to the nearest ER. <Gaby Lantigua - Last Filed: 05/24/18 19:07> Provider - Provider Date of Admission: 05/23/18 15:27 Attending physician: Danielle Rachel, [facility] Course - Lab Results Lab Results: Most Recent Lab Values WBC 14.0 K/uL (4.8-10.8) H 05/23/18 15:24 RBC 5.30 Mil/uL (3.80-5.20) H 05/23/18 15:24 Hgb 15.4 g/dL (11.0-16.0) D 05/23/18 15:24 Hct 45.4 % (34.0-47.0) 05/23/18 15:24 MCV 85.5 fL (81.0-99.0) 05/23/18 15:24 MCH 29.1 pg (27.0-31.0) 05/23/18 15:24 MCHC 34.0 g/dL (33.0-37.0) 05/23/18 15:24 RDW 12.4 % (11.5-14.5) 05/23/18 15:24 Plt Count 236 K/uL (130-400) 05/23/18 15:24 MPV 9.5 fL (7.2-11.7) 05/23/18 15:24 Neut % (Auto) 63.6 % (50.0-75.0) 05/23/18 15:24 Lymph % (Auto) 25.7 % (20.0-40.0) 05/23/18 15:24 [place] % (Auto) 5.8 % (0.0-10.0) 05/23/18 15:24 Eos % (Auto) 4.2 % (0.0-4.0) H 05/23/18 15:24 Baso % (Auto) 0.7 % (0.0-2.0) 05/23/18 15:24 Neut # (Auto) 8.9 K/uL (1.8-7.0) H 05/23/18 15:24 Lymph # (Auto) 3.6 K/uL (1.0-4.3) 05/23/18 15:24 [place] # (Auto) 0.8 K/uL (0.0-0.8) 05/23/18 15:24 Eos # (Auto) 0.6 K/uL (0.0-0.7) 05/23/18 15:24 Baso # (Auto) 0.1 K/uL (0.0-0.2) 05/23/18 15:24 Sodium 135 mmol/L (132-148) 05/23/18 17:27 Potassium 3.1 mmol/L (3.6-5.2) L 05/23/18 17:27 Chloride 93 mmol/L (98-107) L 05/23/18 17:27 Carbon Dioxide 31 mmol/L (22-30) H 05/23/18 17:27 Anion Gap 14 (10-20) 05/23/18 17:27 BUN 14 mg/dL (7-17) 05/23/18 17:27 Creatinine 0.6 mg/dL (0.7-1.2) L 05/23/18 17:27 Est GFR ( Amer) > 60 05/23/18 17:27 Est GFR (Non-Af Amer) > 60 05/23/18 17:27 POC Glucose (mg/dL) 101 mg/dL (65-110) 05/24/18 06:06 Random Glucose 123 mg/dL (65-105) H 05/23/18 17:27 Calcium 8.4 mg/dl (8.6-10.4) L 05/23/18 17:27 Phosphorus 4.4 mg/dL (2.5-4.5) 05/23/18 17:27 Magnesium 2.0 mg/dL (1.6-2.3) 05/23/18 17:27 Total Bilirubin 0.5 mg/dL (0.2-1.3) 05/23/18 17:27 AST 27 U/L (14-36) 05/23/18 17:27 ALT 50 U/L (9-52) 05/23/18 17:27 Alkaline Phosphatase 66 U/L (38-126) 05/23/18 17:27 Total Creatine Kinase < 20 U/L (30-135) L 05/23/18 17:27 CK-MB (Mass) < 0.22 ng/mL (0.0-3.38) 05/23/18 17:27 Troponin I < 0.0120 ng/mL (0.00-0.120) 05/23/18 17:27 Total Protein 6.1 g/dL (6.3-8.3) L 05/23/18 17:27 Albumin 3.4 g/dL (3.5-5.0) L 05/23/18 17:27 Globulin 2.7 gm/dL (2.2-3.9) 05/23/18 17:27 Albumin/Globulin Ratio 1.2 (1.0-2.1) 05/23/18 17:27 Attending/Attestation - Attestation I have personally seen and examined this patient.: Yes I have fully participated in the care of the patient.: Yes I have reviewed all pertinent clinical information, including history, physical exam and plan: Yes
--- NOTE | 2018-05-24 12:48 | CARD ---
APPROVED REPORT Date of service: 05/23/2018 EKG Measurement Heart [id number] <Conclusion> Normal sinus rhythm Possible Left atrial enlargement Septal infarct, age undetermined T wave abnormality, consider anterior ischemia Prolonged QT Abnormal ECG
--- NOTE | 2018-05-24 22:14 | CON ---
DATE: 05/23/2018 NEUROLOGICAL INITIAL EVALUATION PATIENT ROOM NUMBER: 554 ATTENDING PHYSICIAN: Sammi Garcia MD REASON FOR CONSULTATION: Dizziness. CHIEF COMPLAINT: The patient was presenting with recurrent episode of dizziness for the last 3-4 days. From neurological point of view, I was called in to evaluate her for further management. 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 For the last 1 week, she had a travel to [facility], to different states of [facility], and back to [place], presenting with abrupt onset of vertigo while she was with her in the middle of the left day. This episode is associating with nausea, vomiting. Two days prior to this episode, the patient did have some lightheadedness associating with losing balance, more to her left side. No history of fall. No history of focal weakness. No history of visual or bulbar dysfunction. However, all these episodes are associating with some ringing ear on her left side. There is no loss of hearing. These two episodes prior to this current episode were treated with steroids and meclizine as an outpatient by her PMD. The current episode was more severe, associating with nausea and vomiting, she was not able to bear this vertiginous feeling. At present, she is comfortable, lying down. No headache. No dizziness. Comfortably working on her phone in this morning. No nausea. No vomiting. PAST MEDICAL HISTORY: Significant for arthritis, status post knee replacement, some gastrointestinal problem in the past, and hypertension. MEDICATIONS: The patient was on aspirin for the last few days. Prior to this episode, she stopped taking it. SOCIAL HISTORY: Denies smoking or alcohol use. ALLERGIES: NO KNOWN ALLERGIES. REVIEW OF SYSTEM: Twelve-point system being reviewed. From neuro, recurrent episode of dizziness. PHYSICAL EXAMINATION: VITAL SIGNS: Blood pressure 128/69, mean arterial pressure of 88, respiratory rate 18, pulse rate 69 and regular, temperature 97.6. NECK: Supple. No carotid bruit. HEART: Heart sounds are regular. CHEST: Fair air entry. EXTREMITIES: No edema in legs. NEUROLOGIC EXAMINATION AND MENTAL STATUS EXAMINATION: She is awake, alert, oriented to person, place, and time. Speech is clear. Naming, repetition, fluency, comprehension are all within normal limits. CRANIAL NERVE EXAMINATION: Visual field intact. Pupils are reactive with extraocular movement normal. No nystagmus. No facial sensory deficit. No facial asymmetry. Hearing is normal. Tongue is midline. Good gag. COORDINATION: Ngcywx-roxk-dwdgej test is intact. No sign of dysmetria. She was able to stand on her own. Romberg sign is negative. Tandem is fair. She was able to march in one place with eyes closed. DEEP TENDON REFLEXES: 1+ on either side, both knees are 1+, both ankles are absent, plantars are downgoing. SENSORY EXAMINATION: No dermatomal or cortical sensory loss. CONCLUSION: Ms. Maddy Meek has been presenting with recurrent episode of vertigo. In her lifetime, this is the fourth time it happened. This episode is also associating with some losing balance with ringing ear. 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 Considering her age and history of hypertension, noncompliance with antiplatelets, possible vertebrobasilar insufficiency, unless otherwise proved. From clinical history, it is favoring me to say it probably is vestibulopathy. WORKUP: MRI of the brain was done as an outpatient which was reported to me as negative, no acute process of ischemic process. BLOOD WORKUP: WBC 14, hemoglobin 15.4, hematocrit 45.4, platelets 236. Sodium 135, potassium 3.1, chloride 93, bicarbonate of 31, BUN of 14, creatinine 0.6. GFR more than 60. Random glucose 123 with a calcium of 8.4. RECOMMENDATIONS: 1. Considering her risk factors, the patient should be on antiplatelets. I prefer her to be on Plavix at least for 6 months, and depending on her progress, that medication can be switched. 2. Proper hydration, encouraged her p.o. fluids. 3. Vestibular therapy, which can be done even on her own. Instruction for vestibular exercise will be sent to her as per request to her by me. 4. The patient can be benefited by seeing an ENT for her vestibular neuropathy. 5. The patient will be followed while she is in the hospital. Marquise Tolbert MD
== END 2018-05-24 08:35 | disposition home or self-care (01) ==
LOC: C.ER 14:32 → C.6T 15:27 → C.5S 17:10
PROVIDERS: ADMIT Hospitalist; ATTEND Hospitalist
DX: H81.09 Meniere's disease, unspecified ear (principal); I10 Essential (primary) hypertension; E78.00 Pure hypercholesterolemia, unspecified; Z79.02 Long term (current) use of antithrombotics/antiplatelets; Z91.19 Patient's noncompliance with other medical treatment and regimen; Z90.710 Acquired absence of both cervix and uterus; Z96.653 Presence of artificial knee joint, bilateral; Z82.3 Family history of stroke; M19.90 Unspecified osteoarthritis, unspecified site
CPT/HCPCS: 36415; 71045; 80053; 82948; 83735; 84100; 84484; 85025; 93005; 96372; 96374; 96375; 99285; G0378; J2060; J2405; J3250; J7030; Q9967

== ENCOUNTER 2018-08-17 11:27 | Outpatient (CLI) | payer MEDICARE, BC | END 2018-08-17 11:28 | disposition home or self-care (01) | LOC: C.DEXAIC 11:27 | DX: Z12.31 Encounter for screening mammogram for malignant neoplasm of breast (principal) ==

== ENCOUNTER 2018-08-25 09:30 | Outpatient (CLI) | payer MEDICARE, BC | END 2018-08-25 09:31 | disposition home or self-care (01) | LOC: C.MAMMO 09:30 | DX: R92.8 Other abnormal and inconclusive findings on diagnostic imaging of breast (principal) ==